=== PATIENT | male | born 1960 | race American Indian/Alaskan Native ===

== ENCOUNTER 2020-11-20 07:38 | Emergency (ER) | payer MEDICAID, MEDICARE ==
[2020-11-20] MEDS ORDERED: KETOROLAC 30 MG/1 ML INJ IM ONE (07:55)
[2020-11-20] MEDS ORDERED: dexAMETHasone 20 MG/5 ML VIAL IV ONE (07:56)
--- NOTE | 2020-11-20 08:41 | XRay Report ---
RIGHT WRIST 4 VIEWS INDICATION: acute pain and swelling, no injury. COMPARISON: None. IMPRESSION: There is a mildly displaced fracture through the proximal scaphoid bone with 2 mm separa tion. The age of this is indeterminate. This could represent a subacute to chronic fracture as well. Please correlate with the patient's clinical history. 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 Multiple small subchondral cysts are noted in the carpal bones. There is moderate diffuse soft tissue swelling. Signer Name: Judson Vázquez Jr, MD Signed: 11/20/2020 8:36 AM Workstation Name: [id number]
[2020-11-20 09:18] LABS: Basophils % (Auto) 0.4 % (0.0-1.8); Eosinophils % (Auto) 0.5 % (0.0-4.3); Hematocrit 45.8 % (35.5-45.6); Hemoglobin 14.9 gm/dl (11.8-15.2); Lymphocytes # (Auto) 2.6 K/mm3 (1.2-5.4); Lymphocytes % (Auto) 28.4 % (13.4-35.0); Mean Corpuscular HGB Conc 33 % (32-34); Mean Corpuscular Volume 88 fl (84-94); Monocytes # (Auto) 0.6 K/mm3 (0.0-0.8); Monocytes % (Auto) 6.7 % (0.0-7.3); Platelet Count 110 K/mm3 (140-440); Red Blood Count 5.19 M/mm3 (3.65-5.03); Red Cell Distribution Width 16.7 % (13.2-15.2)
[2020-11-20 09:33] LABS: BUN/Creatinine Ratio 12; Blood Urea Nitrogen 13 mg/dL (9-20); Calcium 9.7 mg/dL (8.4-10.2); Hemolysis Index 6
--- NOTE | 2020-11-20 09:42 | Emergency Department Report ---
ED General Adult HPI - General Chief complaint: Extremity Injury, Upper Stated complaint: RT ARM PAIN Time Seen by Provider: 11/20/20 07:49 Source: patient Mode of arrival: Ambulatory Limitations: No Limitations - History of Present Illness Initial comments: 60-year-old -[place] male patient presents with complaints of sudden onset of right wrist pain and swelling x3 days. He rates his pain as a 10/10 in severity and states it worsens with touch and to move. He also reports some tingling in his hand since the onset of the swelling. He states he is unable to bend the wrist secondary to pain. No history of gout per patient. He also iwona es any fever/chills/sweats, redness to the area, injuries, IV drug use, or past medical history. Pain radiates up throughout his arm into his shoulder per patient Severity scale (0 -10): 8 - Related Data Previous Rx's Medication Instructions Recorded Last Taken Type Acetaminophen/Codeine [Tylenol 1 tab PO Q6H PRN #10 tab 11/20/20 Unknown Rx /Codeine # 3 tab] Indomethacin 50 mg PO Q8H #20 capsule 11/20/20 Unknown Rx Allergies Allergy/AdvReac Type Severity Reaction Status Date / Time No Known Allergies Allergy Unverified 11/20/20 07:45 ED Review of Systems ROS: Stated complaint: RT ARM PAIN Other details as noted in HPI Constitutional: denies: chills, fever, malaise Respiratory: denies: shortness of breath Cardiovascular: denies: chest pain Gastrointestinal: denies: abdominal pain, nausea, vomiting Musculoskeletal: joint swelling, arthralgia Skin: denies: change in color Neurological: denies: paresthesias ED Past Medical Hx - Past Medical History Previous Medical History?: No - Surgical History Past Surgical History?: No - Social History Smoking Status: Current Every Day Smoker Substance Use Type: None - Medications Home Medications: Home Medications Medication Instructions Recorded Confirmed Last Taken Type Acetaminophen/Codeine [Tylenol 1 tab PO Q6H PRN #10 tab 11/20/20 Unknown Rx /Codeine # 3 tab] Indomethacin 50 mg PO Q8H #20 capsule 11/20/20 Unknown Rx ED Physical Exam - General Limitations: No Limitations General appearance: alert, in no apparent distress - Head Head exam: Present: atraumatic, normocephalic - Eye Eye exam: Present: normal appearance. Absent: scleral icterus - Neck Neck exam: Present: normal inspection - Respiratory Respiratory exam: Present: normal lung sounds bilaterally. Absent: respiratory distress - Cardiovascular Cardiovascular Exam: Present: regular rate, normal rhythm - Extremities Exam Extremities exam: Present: other (Mild to moderate swelling noted to right wrist without erythema; decreased range of motion noted secondary to pain; patient has normal perfusion and sensation of hand and fingers) - Back Exam Back exam: Present: full ROM - Neurological Exam Neurological exam: Present: alert, oriented X3, normal gait - Psychiatric Psychiatric exam: Present: normal affect, normal mood - Skin Skin exam: Present: warm, dry, intact, normal color. Absent: rash ED Course Vital Signs 11/20/20 11/20/20 11/20/20 07:48 08:35 08:50 Temperature 98.4 F Pulse Rate 102 H Respiratory 20 18 18 Rate Blood Pressure 168/92 O2 Sat by Pulse 100 Oximetry ED Medical Decision Making - Lab Data Result diagrams: 11/20/20 08:36 11/20/20 08:36 - Radiology Data Radiology results: report reviewed RIGHT WRIST 4 VIEWS INDICATION: acute pain and swelling, no injury. COMPARISON: None. IMPRESSION: There is a mildly displaced fracture through the proximal scaphoid bone with 2 mm separation. The age of this is indeterminate. This could represent a subacute to chronic fracture as well. Please correlate with the patient's clinical history. 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 Multiple small subchondral cysts are noted in the carpal bones. There is moderate diffuse soft tissue swelling. - Medical Decision Making 60-year-old -[place] male patient presents with complaints of sudden onset of right wrist pain and swelling x3 days. He rates his pain as a 10/10 in severity and states it worsens with touch and to move. He also reports some tingling in his hand since the onset of the swelling. He states he is unable to bend the wrist secondary to pain. No history of gout per patient. He also denies any fever/chills/sweats, redness to the area, injuries, IV drug use, or past medical history X-ray shows age-indeterminate scaphoid fracture-patient admits to history of this. Suspect gout. Patient given Decadron and Toradol and states his pain is significantly improved here in ED. Recommend follow-up with primary care and orthopedics for further evaluation. He is well-appearing and stable for discharge home. Discussed signs and symptoms that should prompt immediate return to the emergency department in detail with patient who verbalizes understanding. Critical care attestation.: If time is entered above; I have spent that time in minutes in the direct care of this critically ill patient, excluding procedure time. ED Disposition Clinical Impression: Swelling of right wrist, Gout, Elevated blood pressure reading Disposition: TO HOME OR SELFCARE Is pt being admited?: No Condition: Stable Instructions: Wrist Pain, Adult, Hypertension, Adult Prescriptions: Indomethacin 50 mg PO Q8H #20 capsule Acetaminophen/Codeine [Tylenol /Codeine # 3 tab] 1 tab PO Q6H PRN #10 tab PRN Reason: Pain , Severe (7-10) Referrals: [facility] [Provider Group] - 2-3 Days (blood pressure, gout)
[2020-11-20] MEDS ORDERED: oxyCODONE /ACETAMINOPHEN 5-325MG TAB PO ONE (09:55)
[2020-11-20 10:47] VITALS: BP 142/82
== END 2020-11-20 10:52 | disposition home or self-care (01) ==
LOC: ED 07:38
DX: M10.9 Gout, unspecified (principal); M79.89 Other specified soft tissue disorders; R03.0 Elevated blood-pressure reading, without diagnosis of hypertension; F17.200 Nicotine dependence, unspecified, uncomplicated; Z79.899 Other long term (current) drug therapy
CPT/HCPCS: 36415; 73110; 80048; 84550; 85025; 96372; 96374; 99284; J1100; J1885